=== PATIENT | male | born 1970 | race African-American/Black ===

== ENCOUNTER 2024-03-19 13:21 | Emergency (ER) | payer BC, OTHER, SELFPAY ==
[2024-03-19] MEDS ORDERED: Dextrose 10% in Water 250 ML ONE (13:29)
[2024-03-19] MEDS ORDERED: NOREPINEPHRINE 8 MG/250 ML-D5W 250 ML ONE (13:38)
[2024-03-19] MEDS ORDERED: Cefepime 2 GM in Sodium Chloride 0.9% 100 ML IVPB SCH (14:00)
[2024-03-19 14:11] LABS: #Basophils Less than 0.03 10x3/uL (0.0-0.2); #Eosinphils Less than 0.03 10x3/uL (0.0-0.7); %Basophils 0.2 % (0.0-1.0); %Eosinophils 0.1 % (0.0-10.0); %Lymphocytes 13.3 % (21.0-51.0); %Monocytes 4.7 % (0.0-10.0); Hematocrit 20.2 % (42.0-52.0); Hemoglobin 6.8 g/dL (14.0-18.0); Mean Corpuscular HGB CONC 33.7 g/dL (32.0-36.0); Mean Corpuscular Hemoglobin 27.8 pg (27.0-31.0); Mean Corpuscular Volume 82.4 fL (78.0-98.0); Platelet Count 219 10x3/uL (130-400); RBC Distribution Width 16.6 % (11.5-14.5); Red Blood Cell (RBC) Count 2.45 mill/uL (4.70-6.10)
[2024-03-19 14:29] LABS: INR-International Normal Ratio 1.3; PTT 36.3 sec (22.9-36.1); Prothrombin Time 16.5 sec (12.0-14.7)
[2024-03-19] MEDS ORDERED: Vancomycin (BATCH) 1.5 GM in Premix 1 BAG IVPB SCH (14:30)
[2024-03-19] MEDS ORDERED: Cefepime 2 GM VIAL ONE (14:32)
[2024-03-19] MEDS ORDERED: Sodium Chloride 0.9% 100 ML ONE (14:32)
[2024-03-19 14:47] LABS: ALT (SGPT) 19 U/L (8-55); AST (SGOT) 33 U/L (5-34); Albumin 1.9 g/dL (3.5-5.0); Alkaline Phosphatase 100 U/L (40-110); Anion Gap 11 mmol/L (10-20); BUN (Urea Nitrogen) 35 mg/dL (8.4-25.7); Bilirubin, Total 0.4 mg/dL (0.2-1.2)
[2024-03-19 14:52] LABS: Free T4 (Free Thyroxine) 0.61 ng/dL (0.70-1.48); Thyroid Stimulating Hormone 4.4905 uIU/mL (0.35-4.94)
[2024-03-19 14:56] LABS: Calc. Creatinine Clearance 0 mL/min (70-130); Calcium 6.8 mg/dL (7.8-10.44); Carbon Dioxide 19 mmol/L (22-29); Chloride 108 mmol/L (98-107); Estimated GFR 128; Globulin 1.8 g/dL (2.4-3.5); Glucose 39 mg/dL (70-105); Potassium 3.4 mmol/L (3.5-5.1); Protein, Total 3.7 g/dL (6.0-8.3); Sodium 135 mmol/L (136-145)
[2024-03-19] MEDS ORDERED: Potassium Chloride 20 MEQ (100 mL) BAG ONE (15:41)
[2024-03-19] MEDS ORDERED: Furosemide 20 MG (2 mL) VIAL ONE (16:16)
[2024-03-19 17:10] LABS: Bacteria/HPF None Seen HPF (None Seen); Bilirubin Negative (Negative); Blood, Urine Negative (Negative); CAUTI Indications for Culture Alt mental st,lethar; Clarity Clear (Clear); Glucose, Urine (Dipstick) Normal (Negative); Ketone, Urine Negative (Negative); Leukocyte Negative Leu/uL (Negative); Nitrite Negative (Negative); Protein, Urine (Dipstick) Negative (Neg-Trace); RBC/HPF 0-3 HPF (0-3); Specific Gravity, Urine 1.028 (1.002-1.036); Squamous Epithelial 0-3 HPF (0-3); Urobilinogen Normal mg/dL (Less than 2); WBC/HPF 0-3 HPF (0-3)
[2024-03-19 17:11] LABS: Urine Culture Reflex No No
== END 2024-03-19 18:10 | disposition short-term general hospital (02) ==
LOC: ERS 13:21
DX: A41.9 Sepsis, unspecified organism (principal); D64.9 Anemia, unspecified; R79.89 Other specified abnormal findings of blood chemistry; R57.9 Shock, unspecified; C79.9 Secondary malignant neoplasm of unspecified site
CPT/HCPCS: 36415; 36416; 36430; 36556; 51702; 71045; 74177; 80053; 81001; 83605; 83735; 83880; 84439; 84443; 84484; 85025; 85610; 85730; 86850; 86900; 86901; 87040; 93005; 96365; 96366; 96367; 96368; 96375; 99292; J0692; J1940; J3370; J3480; J3490; J7050; P9016